=== PATIENT | female | born 2005 | race Caucasian/White ===

== ENCOUNTER 2023-09-18 23:41 | Emergency (ER) | payer MEDICAID, OTHER ==
[~2023-09-18] VITALS: Ht 165.1 cm; Wt 57.0 kg
[~2023-09-18 23:41] MED LIST: PREG300C PO
[2023-09-18 23:52] VITALS: O2SAT 99
[2023-09-19] MEDS ORDERED: ONDANSETRON HCL 4MG/2ML INJ IV ONE (00:15)
[2023-09-19] MEDS ORDERED: MORPHINE SULFATE 4 MG/ML CPJ (NOT FOR IM USE) IV ONE (00:15)
[2023-09-19] MEDS ORDERED: NAPR275T96 MT (01:02)
[2023-09-19] MEDS ORDERED: HYDROCODONE/ACETAMINOPHEN 5/325MG TABLET PO ONE (01:15)
[2023-09-19 06:27] VITALS: BP 104/56; PULSE 92; RESP 16; TEMP 98.4
== END 2023-09-19 06:28 | disposition home or self-care (01) ==
LOC: ER 23:58
DX: G89.29 Other chronic pain (principal); M54.50 Low back pain, unspecified; Z00.00 Encounter for general adult medical examination without abnormal findings; Z98.890 Other specified postprocedural states; V99.XXXA Unspecified transport accident, initial encounter; Y93.89 Activity, other specified; Y92.89 Other specified places as the place of occurrence of the external cause; Y99.8 Other external cause status
CPT/HCPCS: 99284; 96374; 96375; J2405; J2270; Z7610 ×3